=== PATIENT | female | born 1980 | race Caucasian/White ===

== ENCOUNTER 2023-04-08 14:30 | Emergency (ER) | payer MEDICARE, SELFPAY ==
[2023-04-08 14:49] VITALS: BP 124/55; PULSE 66; RESP 22; TEMP 36.4; O2SAT 99; BMI 23.3
--- NOTE | 2023-04-08 15:05 | ECG_ITS ---
[facility] Test Date: 2023-04-08 Pat Name: Blanka Limon Department: Room: Gender: Female [employer]: : 1980 Requested By: Alfonso Mora Order Number: [id number] Dmitri MD: Hong Delgado M.D. Measurements Intervals Clint Rate: 72 P: 268 ND: 124 QRS: 58 QRSD: 93 T: 48 QT: 403 QTc: 441 Interpretive Statements Baseline artifact Rhythm appears to be ectopic atrial rhythm. ABNORMAL RHYTHM ECG No previous ECG available for comparison Electronically Signed On 04-10-2023 16:49:26 HEEL TURNER by Hong Delgado M.D. [id number]
--- NOTE | 2023-04-08 15:05 | XRR_ITS ---
PROCEDURE INFORMATION: Exam: XR Chest Exam date and time: 04/08/2023 4:01 PM Age: 42 years old Clinical indication: Screening exam; Other screening; Additional info: Suicidal ideation TECHNIQUE: Imaging protocol: Radiologic exam of the chest. Views: 1 view. COMPARISON: No relevant prior studies available. FINDINGS: Lungs: Unremarkable. No consolidation. Pleural spaces: Unremarkable. No pleural effusion. No pneumothorax. Heart/Mediastinum: Unremarkable. No cardiomegaly. Bones/joints: Unremarkable. Soft tissues: Vagal nerve stimulator device noted. XR/XR chest 1V portable [id number] IMPRESSION: No acute findings.
--- NOTE | 2023-04-08 15:29 | PC.PHAR ---
PT WAS ABLE TO VERIFY ALL HER MEDS BUT UNABLE TO REMEMBER WHEN LAST TAKEN.
--- NOTE | 2023-04-08 15:43 | W.ED.PSYCHS ---
Documented by User: Alfonso Mora DO 04/08/23 21:13 HPI - Psych General: Chief Complaint: Psychiatric Symptoms Stated Complaint: 96 hr hold Time Seen by Provider: 04/08/23 15:03 History of Present Illness: patient was brought to the ER by her friendWith thoughts of harming herself. Patient states to the nursing staff no I am a pussy and she stated I should have done it a long time ago. Patient was tearful in triage not cooperative with staff upon further questioning she became elusive with answers. The friend who is a deputy wrote an affidavit and. Patient would not give up her 's phone number to corroborate the affidavit. Patient did admit to locking herself in the bathroom with all the guns in the house. Patient also stated that she has brain cancer and schizophrenia. Patient also stated her has PTSD from his time in the war. Patient has a service animal with her. Dr. Cortes was consulted who came down here to interview the patient. Patient was uncooperative and gave elusive answers and try to avoid direct questioning. Dr. Cortes did not feel comfortable in letting the patient go home to environment as she described. Dr. Cortes suggested placing the patient in a 96-hour hold taking her up to [facility] where she can be further evaluated and treated. Review of Systems General: Reports: Other (Uncooperative with questioning) Physical Exam Const: COMMON NORMALS: no acute distress, average body habitus, patient oriented x3, no limitations, healthy appearing, alert and well nourished EXAM LIMITATIONS: other limitations (Uncooperative) HENMT: COMMON NORMALS: hearing grossly normal bilaterally Eye: COMMON NORMALS: Equal, round and reactive pupils present, EOMs intact bilaterally, conjunctivae normal and no scleral icterus CONJUNCTIVA: Yes conjunctivae normal PUPIL: Yes Equal, round and reactive pupils present Neck/C-Spine: COMMON NORMALS: full ROM Chest: COMMONS NORMALS: normal inspection of the chest Resp: COMMON NORMALS: normal respiratory effort, No retractions and No use of accessory muscles Cardio: COMMON NORMALS: regular rate and regular rhythm RATE: regular rate RHYTHM: regular rhythm Extremity: COMMON NORMALS: normal to inspection Neuro: COMMON NORMALS: patient oriented x3 and moves all extremities SENSORIUM/ORIENTATION: Yes alert Course Vital Signs: Vital signs: Vital Signs Temperature 98.6 F 04/09/23 18:28 Pulse Rate 88 04/09/23 18:28 Respiratory Rate 16 04/09/23 18:28 Blood Pressure 116/77 04/09/23 18:28 Pulse Oximetry 100 04/09/23 18:28 Oxygen Delivery Me thod Room Air 04/09/23 14:15 MDM - Psych Medical Decision Making Patient is refusing all workup. Upon further questioning and consulting Dr. Cortes it is suggested we place the patient on a 96-hour hold admit her to [facility] for further evaluation and treatment by Dr. Cortes. Differential Diagnosis Likely chronic schizophrenia and suicidal ideation Medical Records I reviewed the patient's medical records. Lab Data I reviewed the patient's lab results. 04/08/23 21:20 04/08/23 21:20 Radiology Impressions Chest X-Ray 04/08/23 15:05 IMPRESSION: No acute findings. Laboratory Results WBC 8.01 10^3/uL (3.29-11.43) 04/08/23 21:20 RBC 4.46 10^6/uL (3.85-5.65) 04/08/23 21:20 Hgb 14.80 g/dL (11.27-16.99) 04/08/23 21:20 Hct 43.2 % (36-47) 04/08/23 21:20 MCV 96.9 fl (85-98) 04/08/23 21:20 MCH 33.2 pg (27-33) H 04/08/23 21:20 MCHC 34.3 g/dL (30-55) 04/08/23 21:20 RDW 11.6 % (12.1-15.1) L 04/08/23 21:20 Plt Count 337 10^3/cmm (157-399) 04/08/23 21:20 MPV 9.3 fL (7.4-10.4) 04/08/23 21:20 Neut % (Auto) 50.5 % 04/08/23 21:20 Lymph % (Auto) 33.2 % 04/08/23 21:20 [place] % (Auto) 8.2 % 04/08/23 21:20 Eos % (Auto) 7.0 % 04/08/23 21:20 Baso % (Auto) 0.9 % 04/08/23 21:20 Neut # (Auto) 4.04 10^3/uL (1.8-7.7) 04/08/23 21:20 Lymph # (Auto) 2.7 10^3/uL (0.8-4.8) 04/08/23 21:20 [place] # (Auto) 0.7 10^3/uL (0.2-0.9) 04/08/23 21:20 Eos # (Auto) 0.6 10^3/uL (0.0-0.8) 04/08/23 21:20 Baso # (Auto) 0.1 10^3/uL (0.0-0.1) 04/08/23 21:20 Nucleated RBC % (auto) 0 % 04/08/23 21:20 Nucleated RBCs # 0.0 /100WBC 04/08/23 21:20 Sodium 134 mmol/L (136-145) L 04/08/23 21:20 Potassium 4.1 mmol/L (3.5-5.1) 04/08/23 21:20 Chloride 99 mmol/L (98-107) 04/08/23 21:20 Carbon Dioxide 24 mmol/L (22-29) 04/08/23 21:20 Anion Gap 15.1 (5-19) 04/08/23 21:20 BUN 15 mg/dL (6-20) 04/08/23 21:20 Creatinine 0.8 mg/dL (0.5-0.9) 04/08/23 21:20 GFR Calculation 78.3 mL/min (90-130) L 04/08/23 21:20 Glucose 100 mg/dL (65-115) 04/08/23 21:20 Calculated Osmolality 279 mOsm/kg (285-295) L 04/08/23 21:20 Calcium 9.5 mg/dL (8.5-10.5) 04/08/23 21:20 Total Bilirubin 1.0 mg/dL (0.15-1.2) 04/08/23 21:20 AST 15 U/L (0-32) 04/08/23 21:20 ALT 12 U/L (0-33) 04/08/23 21:20 Alkaline Phosphatase 76 U/L (35-105) 04/08/23 21:20 Total Protein 7.6 g/dL (6.6-8.7) 04/08/23 21:20 Albumin 4.8 g/dL (3.5-5.2) 04/08/23 21:20 Globulin 2.8 g/dL (1.3-4.6) 04/08/23 21:20 TSH 2.41 uIU/mL (0.27-4.20) 04/08/23 21:20 HCG, Qual Negative (Negative) 04/08/23 21:42 Urine Color Yellow (Yellow) 04/08/23 21:40 Urine Appearance Hazy (CLEAR) A 04/08/23 21:40 Urine pH 5 (5-7) 04/08/23 21:40 Ur Specific [place] 1.025 (1.005-1.030) 04/08/23 21:40 Urine Protein Trace (Negative) 04/08/23 21:40 Urine Glucose (UA) Norm (Normal) 04/08/23 21:40 Urine Ketones 1+ (Negative) H 04/08/23 21:40 Urine Blood 2+ (Negative) H 04/08/23 21:40 Urine Nitrate Negative (Negative) 04/08/23 21:40 Urine Bilirubin Neg (Negative) 04/08/23 21:40 Urine Urobilinogen Neg mg/dL (Negative) 04/08/23 21:40 Ur Leukocyte Esterase Negative (Negative) 04/08/23 21:40 Urine RBC 5-10 /hpf (0-2) H 04/08/23 21:40 Urine WBC None /hpf (0-5) 04/08/23 21:40 Ur Squamous Epith Cells 15-25 /hpf (0-5) H 04/08/23 21:40 Amorphous Sediment Not Reportable 04/08/23 21:40 Urine Bacteria 1+ /hpf (NONE) H 04/08/23 21:40 Urine Mucus 2+ /hpf 04/08/23 21:40 Nasal Influ A H1 2008 PCR Not detected (NOT DETECT) 04/08/23 21:16 Salicylates < 0.3 mg/dL (3-10) L 04/08/23 21:20 Urine Opiates Screen Positive ng/mL (Negative) H 04/08/23 21:40 Acetaminophen < 5.0 ug/mL (10-30) L 04/08/23 21:20 Ur Barbiturates Screen Negative ng/mL (Negative) 04/08/23 21:40 Ur Phencyclidine Scrn Negative ng/mL (Negative) 04/08/23 21:40 Ur Amphetamines Screen Negative ng/mL (Negative) 04/08/23 21:40 U Benzodiazepines Scrn Positive ng/mL (Negative) H 04/08/23 21:40 Urine Cocaine Screen Negative ng/mL (Negative) 04/08/23 21:40 U Marijuana (THC) Screen Positive ng/mL (Negative) H 04/08/23 21:40 Ethyl Alcohol < 10 mg/dL (0-10) 04/08/23 21:20 Adenovirus (PCR) Not detected (NOT DETECT) 04/08/23 21:16 C. pneumoniae DNA (PCR) Not detected (NOT DETECT) 04/08/23 21:16 Coronavirus 229E (PCR) Not detected (NOT DETECT) 04/08/23 21:16 Human Metapneumovir PCR Not detected (NOT DETECT) 04/08/23 21:16 Influenza A (H1) PCR Not detected (NOT DETECT) 04/08/23 21:16 Influenza A (H3) PCR Not detected (NOT DETECT) 04/08/23 21:16 Influenza Type A (PCR) Not detected (NOT DETECT) 04/08/23 21:16 Influenza Type B (PCR) Not detected (NOT DETECT) 04/08/23 21:16 M. pneumoniae (PCR) Not detected (NOT DETECT) 04/08/23 21:16 Parainfluenza 1 (PCR) Not detected (NOT DETECT) 04/08/23 21:16 Parainfluenza 2 (PCR) Not detected (NOT DETECT) 04/08/23 21:16 Parainfluenza 3 (PCR) Not detected (NOT DETECT) 04/08/23 21:16 Parainfluenza 4 (PCR) Not detected (NOT DETECT) 04/08/23 21:16 RSV Type A (PCR) Not detected (NOT DETECT) 04/08/23 21:16 RSV Type B (PCR) Not detected (NOT DETECT) 04/08/23 21:16 Entero/Rhino (PCR) Not detected (NOT DETECT) 04/08/23 21:16 SARS-CoV-2 (PCR) Not detected (NOT DETECT) 04/08/23 21:16 All radiology interpretation(s) finalized by discharge Discharge Plan Discharge Patient Disposition: Admitted As Inpatient Clinical Impression: Chronic schizophrenia, Suicidal ideation Condition: Stable Coding Level of Care Code ED Stem Threshing Machine Operator for Arun Fwd Documented by User: Daniel Mann MD 04/08/23 23:10 HPI - Psych General: Chief Complaint: Psychiatric Symptoms Stated Complaint: 96 hr hold Time Seen by Provider: 04/08/23 15:03 Course Reevaluation(s): Reevaluation #1: Patient was turned over to me patient has been on a 96-hour hold I believe since 1699. As informed that she does have a personal belongings in her room. I went in her room she did have a full duffel bag of personal belongings had found a pill on her floor as well. I spoke to patient informed her of policy she is not allowed to have a bag full of her belongings in her room under 96-hour hold I did remove the bag Time: 22:30 Vital Signs: Vital signs: Vital Signs Temperature 98.6 F 04/09/23 18:28 Pulse Rate 88 04/09/23 18:28 Respiratory Rate 16 04/09/23 18:28 Blood Pressure 116/77 04/09/23 18:28 Pulse Oximetry 100 04/09/23 18:28 Oxygen Delivery Tn thod Room Air 04/09/23 14:15 MDM - Psych Lab Data 04/08/23 21:20 04/08/23 21:20 Radiology Impressions Chest X-Ray 04/08/23 15:05 IMPRESSION: No acute findings. Laboratory Results WBC 8.01 10^3/uL (3.29-11.43) 04/08/23 21:20 RBC 4.46 10^6/uL (3.85-5.65) 04/08/23 21:20 Hgb 14.80 g/dL (11.27-16.99) 04/08/23 21:20 Hct 43.2 % (36-47) 04/08/23 21:20 MCV 96.9 fl (85-98) 04/08/23 21:20 MCH 33.2 pg (27-33) H 04/08/23 21:20 MCHC 34.3 g/dL (30-55) 04/08/23 21:20 RDW 11.6 % (12.1-15.1) L 04/08/23 21:20 Plt Count 337 10^3/cmm (157-399) 04/08/23 21:20 MPV 9.3 fL (7.4-10.4) 04/08/23 21:20 Neut % (Auto) 50.5 % 04/08/23 21:20 Lymph % (Auto) 33.2 % 04/08/23 21:20 [place] % (Auto) 8.2 % 04/08/23 21:20 Eos % (Auto) 7.0 % 04/08/23 21:20 Baso % (Auto) 0.9 % 04/08/23 21:20 Neut # (Auto) 4.04 10^3/uL (1.8-7.7) 04/08/23 21:20 Lymph # (Auto) 2.7 10^3/uL (0.8-4.8) 04/08/23 21:20 [place] # (Auto) 0.7 10^3/uL (0.2-0.9) 04/08/23 21:20 Eos # (Auto) 0.6 10^3/uL (0.0-0.8) 04/08/23 21:20 Baso # (Auto) 0.1 10^3/uL (0.0-0.1) 04/08/23 21:20 Nucleated RBC % (auto) 0 % 04/08/23 21:20 Nucleated RBCs # 0.0 /100WBC 04/08/23 21:20 Sodium 134 mmol/L (136-145) L 04/08/23 21:20 Potassium 4.1 mmol/L (3.5-5.1) 04/08/23 21:20 Chloride 99 mmol/L (98-107) 04/08/23 21:20 Carbon Dioxide 24 mmol/L (22-29) 04/08/23 21:20 Anion Gap 15.1 (5-19) 04/08/23 21:20 BUN 15 mg/dL (6-20) 04/08/23 21:20 Creatinine 0.8 mg/dL (0.5-0.9) 04/08/23 21:20 GFR Calculation 78.3 mL/min (90-130) L 04/08/23 21:20 Glucose 100 mg/dL (65-115) 04/08/23 21:20 Calculated Osmolality 279 mOsm/kg (285-295) L 04/08/23 21:20 Calcium 9.5 mg/dL (8.5-10.5) 04/08/23 21:20 Total Bilirubin 1.0 mg/dL (0.15-1.2) 04/08/23 21:20 AST 15 U/L (0-32) 04/08/23 21:20 ALT 12 U/L (0-33) 04/08/23 21:20 Alkaline Phosphatase 76 U/L (35-105) 04/08/23 21:20 Total Protein 7.6 g/dL (6.6-8.7) 04/08/23 21:20 Albumin 4.8 g/dL (3.5-5.2) 04/08/23 21:20 Globulin 2.8 g/dL (1.3-4.6) 04/08/23 21:20 TSH 2.41 uIU/mL (0.27-4.20) 04/08/23 21:20 HCG, Qual Negative (Negative) 04/08/23 21:42 Urine Color Yellow (Yellow) 04/08/23 21:40 Urine Appearance Hazy (CLEAR) A 04/08/23 21:40 Urine pH 5 (5-7) 04/08/23 21:40 Ur Specific [place] 1.025 (1.005-1.030) 04/08/23 21:40 Urine Protein Trace (Negative) 04/08/23 21:40 Urine Glucose (UA) Norm (Normal) 04/08/23 21:40 Urine Ketones 1+ (Negative) H 04/08/23 21:40 Urine Blood 2+ (Negative) H 04/08/23 21:40 Urine Nitrate Negative (Negative) 04/08/23 21:40 Urine Bilirubin Neg (Negative) 04/08/23 21:40 Urine Urobilinogen Neg mg/dL (Negative) 04/08/23 21:40 Ur Leukocyte Esterase Negative (Negative) 04/08/23 21:40 Urine RBC 5-10 /hpf (0-2) H 04/08/23 21:40 Urine WBC None /hpf (0-5) 04/08/23 21:40 Ur Squamous Epith Cells 15-25 /hpf (0-5) H 04/08/23 21:40 Amorphous Sediment Not Reportable 04/08/23 21:40 Urine Bacteria 1+ /hpf (NONE) H 04/08/23 21:40 Urine Mucus 2+ /hpf 04/08/23 21:40 Nasal Influ A H1 2008 PCR Not detected (NOT DETECT) 04/08/23 21:16 Salicylates < 0.3 mg/dL (3-10) L 04/08/23 21:20 Urine Opiates Screen Positive ng/mL (Negative) H 04/08/23 21:40 Acetaminophen < 5.0 ug/mL (10-30) L 04/08/23 21:20 Ur Barbiturates Screen Negative ng/mL (Negative) 04/08/23 21:40 Ur Phencyclidine Scrn Negative ng/mL (Negative) 04/08/23 21:40 Ur Amphetamines Screen Negative ng/mL (Negative) 04/08/23 21:40 U Benzodiazepines Scrn Positive ng/mL (Negative) H 04/08/23 21:40 Urine Cocaine Screen Negative ng/mL (Negative) 04/08/23 21:40 U Marijuana (THC) Screen Positive ng/mL (Negative) H 04/08/23 21:40 Ethyl Alcohol < 10 mg/dL (0-10) 04/08/23 21:20 Adenovirus (PCR) Not detected (NOT DETECT) 04/08/23 21:16 C. pneumoniae DNA (PCR) Not detected (NOT DETECT) 04/08/23 21:16 Coronavirus 229E (PCR) Not detected (NOT DETECT) 04/08/23 21:16 Human Metapneumovir PCR Not detected (NOT DETECT) 04/08/23 21:16 Influenza A (H1) PCR Not detected (NOT DETECT) 04/08/23 21:16 Influenza A (H3) PCR Not detected (NOT DETECT) 04/08/23 21:16 Influenza Type A (PCR) Not detected (NOT DETECT) 04/08/23 21:16 Influenza Type B (PCR) Not detected (NOT DETECT) 04/08/23 21:16 M. pneumoniae (PCR) Not detected (NOT DETECT) 04/08/23 21:16 Parainfluenza 1 (PCR) Not detected (NOT DETECT) 04/08/23 21:16 Parainfluenza 2 (PCR) Not detected (NOT DETECT) 04/08/23 21:16 Parainfluenza 3 (PCR) Not detected (NOT DETECT) 04/08/23 21:16 Parainfluenza 4 (PCR) Not detected (NOT DETECT) 04/08/23 21:16 RSV Type A (PCR) Not detected (NOT DETECT) 04/08/23 21:16 RSV Type B (PCR) Not detected (NOT DETECT) 04/08/23 21:16 Entero/Rhino (PCR) Not detected (NOT DETECT) 04/08/23 21:16 SARS-CoV-2 (PCR) Not detected (NOT DETECT) 04/08/23 21:16 Discharge Plan Discharge Patient Disposition: Admitted As Inpatient Clinical Impression: Chronic schizophrenia, Suicidal ideation Condition: Stable Coding Level of Care Code ED Stem Threshing Machine Operator for g Fwd Documented by User: Mateusz Birmingham DO 04/20/23 07:45 HPI - Psych General: Chief Complaint: Psychiatric Symptoms Stated Complaint: 96 hr hold Time Seen by Provider: 04/08/23 15:03 Course Vital Signs: Vital signs: Vital Signs Temperature 98.6 F 04/09/23 18:28 Pulse Rate 88 04/09/23 18:28 Respiratory Rate 16 04/09/23 18:28 Blood Pressure 116/77 04/09/23 18:28 Pulse Oximetry 100 04/09/23 18:28 Oxygen Delivery Me thod Room Air 04/09/23 14:15 MDM - Psych Medical Decision Making Patient is refusing all workup. Upon further questioning and consulting Dr. Cortes it is suggested we place the patient on a 96-hour hold admit her to [facility] for further evaluation and treatment by Dr. Cortes. 04/09/2023 7:08 AM Assumed care at change of shift from Dr. Mann. Reviewed chart and discussed case with Dr. Mann. Service animal as shown aggression to staff. Is also been documented the patient has stated the dog likely to be be aggressive and potentially bite staff. Dr. Mann and I both agree the dog is an impediment to the care of this patient and is an immediate physical threat to the staff. Dr. Mann has had her changed into scrubs, and removed the personal belongings from the room as per hospital policy and standard of care. Last evening staff states that the had offered to take the dog home. We are making attempts to contact him to have him come and get the dog. We are unable to place the patient due to the dog being present. Patient's did arrive and remove the dog from the facility he took at home. Ultimately were able to get accepting facility and patient was transferred via ambulance to outside psychiatry facility. Lab Data 04/08/23 21:20 04/08/23 21:20 Radiology Impressions Chest X-Ray 04/08/23 15:05 IMPRESSION: No acute findings. Laboratory Results WBC 8.01 10^3/uL (3.29-11.43) 04/08/23 21:20 RBC 4.46 10^6/uL (3.85-5.65) 04/08/23 21:20 Hgb 14.80 g/dL (11.27-16.99) 04/08/23 21:20 Hct 43.2 % (36-47) 04/08/23 21:20 MCV 96.9 fl (85-98) 04/08/23 21:20 MCH 33.2 pg (27-33) H 04/08/23 21:20 MCHC 34.3 g/dL (30-55) 04/08/23 21:20 RDW 11.6 % (12.1-15.1) L 04/08/23 21:20 Plt Count 337 10^3/cmm (157-399) 04/08/23 21:20 MPV 9.3 fL (7.4-10.4) 04/08/23 21:20 Neut % (Auto) 50.5 % 04/08/23 21:20 Lymph % (Auto) 33.2 % 04/08/23 21:20 [place] % (Auto) 8.2 % 11/28/23 21:20 Eos % (Auto) 7.0 % 04/08/23 21:20 Baso % (Auto) 0.9 % 04/08/23 21:20 Neut # (Auto) 4.04 10^3/uL (1.8-7.7) 04/08/23 21:20 Lymph # (Auto) 2.7 10^3/uL (0.8-4.8) 04/08/23 21:20 [place] # (Auto) 0.7 10^3/uL (0.2-0.9) 04/08/23 21:20 Eos # (Auto) 0.6 10^3/uL (0.0-0.8) 04/08/23 21:20 Baso # (Auto) 0.1 10^3/uL (0.0-0.1) 04/08/23 21:20 Nucleated RBC % (auto) 0 % 04/08/23 21:20 Nucleated RBCs # 0.0 /100WBC 04/08/23 21:20 Sodium 134 mmol/L (136-145) L 04/08/23 21:20 Potassium 4.1 mmol/L (3.5-5.1) 04/08/23 21:20 Chloride 99 mmol/L (98-107) 04/08/23 21:20 Carbon Dioxide 24 mmol/L (22-29) 04/08/23 21:20 Anion Gap 15.1 (5-19) 04/08/23 21:20 BUN 15 mg/dL (6-20) 04/08/23 21:20 Creatinine 0.8 mg/dL (0.5-0.9) 04/08/23 21:20 GFR Calculation 78.3 mL/min (90-130) L 04/08/23 21:20 Glucose 100 mg/dL (65-115) 04/08/23 21:20 Calculated Osmolality 279 mOsm/kg (285-295) L 04/08/23 21:20 Calcium 9.5 mg/dL (8.5-10.5) 04/08/23 21:20 Total Bilirubin 1.0 mg/dL (0.15-1.2) 04/08/23 21:20 AST 15 U/L (0-32) 04/08/23 21:20 ALT 12 U/L (0-33) 04/08/23 21:20 Alkaline Phosphatase 76 U/L (35-105) 04/08/23 21:20 Total Protein 7.6 g/dL (6.6-8.7) 04/08/23 21:20 Albumin 4.8 g/dL (3.5-5.2) 04/08/23 21:20 Globulin 2.8 g/dL (1.3-4.6) 04/08/23 21:20 TSH 2.41 uIU/mL (0.27-4.20) 04/08/23 21:20 HCG, Qual Negative (Negative) 04/08/23 21:42 Urine Color Yellow (Yellow) 04/08/23 21:40 Urine Appearance Hazy (CLEAR) A 04/08/23 21:40 Urine pH 5 (5-7) 04/08/23 21:40 Ur Specific [place] 1.025 (1.005-1.030) 04/08/23 21:40 Urine Protein Trace (Negative) 04/08/23 21:40 Urine Glucose (UA) Norm (Normal) 04/08/23 21:40 Urine Ketones 1+ (Negative) H 04/08/23 21:40 Urine Blood 2+ (Negative) H 04/08/23 21:40 Urine Nitrate Negative (Negative) 04/08/23 21:40 Urine Bilirubin Neg (Negative) 04/08/23 21:40 Urine Urobilinogen Neg mg/dL (Negative) 04/08/23 21:40 Ur Leukocyte Esterase Negative (Negative) 04/08/23 21:40 Urine RBC 5-10 /hpf (0-2) H 04/08/23 21:40 Urine WBC None /hpf (0-5) 04/08/23 21:40 Ur Squamous Epith Cells 15-25 /hpf (0-5) H 04/08/23 21:40 Amorphous Sediment Not Reportable 04/08/23 21:40 Urine Bacteria 1+ /hpf (NONE) H 04/08/23 21:40 Urine Mucus 2+ /hpf 04/08/23 21:40 Nasal Influ A H1 2009 PCR Not detected (NOT DETECT) 04/08/23 21:16 Salicylates < 0.3 mg/dL (3-10) L 04/08/23 21:20 Urine Opiates Screen Positive ng/mL (Negative) H 04/08/23 21:40 Acetaminophen < 5.0 ug/mL (10-30) L 04/08/23 21:20 Ur Barbiturates Screen Negative ng/mL (Negative) 04/08/23 21:40 Ur Phencyclidine Scrn Negative ng/mL (Negative) 04/08/23 21:40 Ur Amphetamines Screen Negative ng/mL (Negative) 04/08/23 21:40 U Benzodiazepines Scrn Positive ng/mL (Negative) H 04/08/23 21:40 Urine Cocaine Screen Negative ng/mL (Negative) 04/08/23 21:40 U Marijuana (THC) Screen Positive ng/mL (Negative) H 04/08/23 21:40 Ethyl Alcohol < 10 mg/dL (0-10) 04/08/23 21:20 Adenovirus (PCR) Not detected (NOT DETECT) 04/08/23 21:16 C. pneumoniae DNA (PCR) Not detected (NOT DETECT) 04/08/23 21:16 Coronavirus 229E (PCR) Not detected (NOT DETECT) 04/08/23 21:16 Human Metapneumovir PCR Not detected (NOT DETECT) 04/08/23 21:16 Influenza A (H1) PCR Not detected (NOT DETECT) 04/08/23 21:16 Influenza A (H3) PCR Not detected (NOT DETECT) 04/08/23 21:16 Influenza Type A (PCR) Not detected (NOT DETECT) 04/08/23 21:16 Influenza Type B (PCR) Not detected (NOT DETECT) 04/08/23 21:16 M. pneumoniae (PCR) Not detected (NOT DETECT) 04/08/23 21:16 Parainfluenza 1 (PCR) Not detected (NOT DETECT) 04/08/23 21:16 Parainfluenza 2 (PCR) Not detected (NOT DETECT) 04/08/23 21:16 Parainfluenza 3 (PCR) Not detected (NOT DETECT) 04/08/23 21:16 Parainfluenza 4 (PCR) Not detected (NOT DETECT) 04/08/23 21:16 RSV Type A (PCR) Not detected (NOT DETECT) 04/08/23 21:16 RSV Type B (PCR) Not detected (NOT DETECT) 04/08/23 21:16 Entero/Rhino (PCR) Not detected (NOT DETECT) 04/08/23 21:16 SARS-CoV-2 (PCR) Not detected (NOT DETECT) 04/08/23 21:16 Discharge Plan Discharge Patient Disposition: Admitted As Inpatient Clinical Impression: Chronic schizophrenia, Suicidal ideation Condition: Stable Coding Level of Care Code ED Stem Threshing Machine Operator for Arun Mcdaniel
--- NOTE | 2023-04-08 17:50 | PC.NURSE ---
Patient 96 hr rights attempted to be reviewed with patient @1750. [facility] community service officer coordinator Arian, Evaluation Advisor JEFF Justice, Risk Management Giulia, Primary RN Adwoa and multiple other ED staff within close proximity during rights being reviewed. Patient was resistant to discussion of 96 hr hold, and processes that set by [facility] for patient and staff safety. She stated she wanted to be transferred to another facility, and was adamant about not wanting to change out into her scrubs or entering into a ED room with her service animal. Education given on why scrubs and placement into a room were necessary. Patient did state she understood the 96 hr hold process. Patient copy was then left at bedside with the patient.
--- NOTE | 2023-04-08 19:04 | PC.NURSE ---
I was called to the ED regarding dog concern in the Emergency Department. I assisted in investigating the service dog. The patient states the dog is trained to alert for her seizures, she has epilepsy. Staff made aware that the dog is a service animal. While I was in the unit there was concern for patient safety and staff safety as she states to the Yard Spotter the dog will bite if we force her to complete the ordered treatments (blood draw, EKG, urine). Discussion with the Security Staff, Housekeeping Cleaner and Director Statistical Programming to determine the best course of action for the patient and staff safety. She is stating that the dog needs to go use the restroom and initial refuses to let anyone assist in taking the dog out. [place] law enforcement and [facility] Security officers offer to take the dog to the restroom, she states she is not responsible if the dog bites them. In addition to the safety concern, affidavit was provided by [place] law enforcement that has a statement from her spouse. Law enforcement states that they did not witness the details in the affidavit. Confirmed with the ED Provider and Security that the patient is not currently court order 96 hour hold. The patient is pending a psychiatric evaluation. Law enforcement waited until the psychiatric evaluation occurred then departed from the organization. Psychiatrist, Dr. Zaldivar, evaluated the patient and reportedly placed the patient on a 96 hour hold and recommended admission. Due to the Neuropsychiatric unit and the medical units bed lack of availability the patient cannot be admitted. Spoke with the Yard Spotter and CNO when consensus to follow standard operating procedure of finding placement at a facility that has beds. Consensus to proceed with reading the patient her 96 hour rights and then explaining the policy regarding service dog animal requirements in the facility including that the animal may not be a threat to staff and must be kept under control. I witnessed the Assembler Chassis read the patient their rights as well as the Nurse Yard Spotter give the instruction of the dog must be controlled and patient must comply with hospital policy. Patient requests a minute to process. She mentions have a conservator but then declines to give a name to me when I ask or a phone number to the person so we may verify. She says she will just read her rights and let us know if she has any further questions. She then says she doesn't want to go into the room as it makes her anxious and it will trigger a grand mal seizure. She states she has a VNS and we probably don't know how to activate it. I then asked her which side her generator was on she states right but then show me left. I asked where her magnet is and it is located on her right wrist. I let her know my background was in Neurology and I was aware of how to utilize the device she has and offered to ensure all nursing staff taking care of her had understanding of the device before I departed. Patient then escorted by myself and Tree Trimming Supervisor, Arian Harp to the ED room she is assigned to where she sits on the bed. Nurse provided a blanket for the dog to lay on the floor. I asked the patient if she would like some food and she became tearful stating I haven't eaten since Friday, I don't cook, people feed me. I asked if there was something in particular she would like or if she would like a sandwich, she states she doesn't know . I replied I would give her time to think about it and come back to check on her. Patient left with Security and 1:1 sitter. Upon my return the dog is now in the bed with the patient. I returned to the room with a glass of water for the patient in which she replies water sucks I asked her if she liked soda she said soda is good . I asked her if she liked a particular kind of soda and then she became tearful and refused to answer me. She then states that she has a mentation of a 15 year old and asked for 5 more minutes until she had to change her scrubs. I came back with the paper scrubs in 5 minutes to begin to assist her in changing. The cyber security engineer stepped out of the room and the curtain was pulled for her privacy. She then refuses to change. She states that the scrubs will cut her brain . I took a moment to demonstrated that the scrubs did not have anything in them to harm her. She states you just don't understand, its the PTSD . She then proceeds to tell me that you don't understand anything and I probably don't have a license in this game . I attempted to redirect her to the current task at hand and explained that we needed to move forward with changing her out of her clothes. She becomes agitated and states that if the scrubs are such a big deal that if she was doing it she would choose someone else. I asked her to choose who she would like to assist her in getting changed and completing the standard skin assessment as part of the nursing assessment. She refuses to comply and states that changing her clothes would be traumatizing . I asked her why and she refuses to speak and just sits on the bed. I had conversations with the patient in attempt to get her to change her clothes for approximately 45 minutes. I notified the doctor that she stated she would not be changing her clothes. The ED provider is agreeable to let her remain in her personal clothes at this time to avoid a physical interaction with the patient as she has mentioned previously in her visit the dog would bite us. Notification of the decision to remain in personal clothing was given to the oncoming nurse and of the epilepsy/VNS device and the patients concern related to this. I departed the unit. I contacted the Manager Program Management to ensure that he was agreeable to this plan as well as the Housekeeping Cleaner. Notification made to the AOC that the patient was now stable and complying with ordered EKG and the decision to leave her in her personnel clothes and mitigate a Code 10 situation had been made to the nurse caring for the patient as well as the on duty cyber security engineer. Notification to CNO of the event.
--- NOTE | 2023-04-08 20:47 | PC.NURSE ---
this nurse spoke with patient about transfer. pt requested to take dog outside to go potty, this nurse and security walked with patient outside and allowed dog to go potty. when pt arrived back to room with dog this nurse provided x2 sandwiches, Dr. Rosa in styrofoam cup, x2 jello with spoon. PSA aware. dog was given water. pt calm and cooperative with EKG. no further needs verbalized by patient.
--- NOTE | 2023-04-08 21:34 | PC.NURSE ---
Addendum entered by Cece Haines RN 04/09/23 00:10: pt was informed of need to change into scrubs and belongings to be removed as part of protocol. PSA aware as well. Original Note: pt cooperative with blood draw and respiratory panel at this time. informed pt of need for urine and changing into scrubs.
[2023-04-08 21:41] LABS: Basophils # 0.1 10^3/uL (0.0-0.1); Basophils % 0.9 %; Eosinophils # 0.6 10^3/uL (0.0-0.8); Hematocrit 43.2 % (36-47); Lymphocytes # 2.7 10^3/uL (0.8-4.8); Lymphocytes % 33.2 %; Mean Corpuscular HGB Conc 34.3 g/dL (30-55); Mean Corpuscular Hemoglobin 33.2 pg (27-33); Mean Corpuscular Volume 96.9 fl (85-98); Mean Platelet Volume 9.3 fL (7.4-10.4); Monocytes # 0.7 10^3/uL (0.2-0.9); Monocytes % 8.2 %; Neutrophils # 4.04 10^3/uL (1.8-7.7); Neutrophils % 50.5 %; Nucleated Red Blood Cells % 0 %; Platelet Count 337 10^3/cmm (157-399); Red Blood Count 4.46 10^6/uL (3.85-5.65); Red Cell Distribution Width 11.6 % (12.1-15.1); White Blood Count 8.01 10^3/uL (3.29-11.43)
--- NOTE | 2023-04-08 21:44 | PC.NURSE ---
pt cooperative and has provided urine and changed into green paper scrubs at this time. pt currently calm and cooperative.
--- NOTE | 2023-04-08 21:45 | PC.NURSE ---
pt calm at first but refuses to give up personal belongings, but becomes anxious with tangential speech. states it is not time for that yet i just have a few questions, let me just explain to you what is in the bag. you cannot take the bag . this nurse notified Dr. Mora. no further orders at this time as instructed to take process slow by management.
[2023-04-08 21:49] LABS: HCG Qualitative Urine. Negative (Negative)
[2023-04-08 21:53] LABS: Add Urine Microscopic? YES; Bilirubin Urine Neg (Negative); Blood Urine 2+ (Negative); Glucose Urine UA Norm (Normal); Ketones Urine 1+ (Negative); Leukocyte Esterase Urine Negative (Negative); Nitrate Urine Negative (Negative); Protein Urine Trace (Negative); Specific Gravity, Urine 1.025 (1.005-1.030); Urine Appearance Hazy (CLEAR); Urine Color Yellow (Yellow); Urobilinogen Urine Neg (Negative); pH Urine 5 (5-7)
[2023-04-08 21:54] LABS: Add Urine Culture? No; Bacteria Urine 1+ /hpf; Mucus Urine 2+ /hpf; Squamous Epithelial Cell Urine 15-25 /hpf (0-5)
[2023-04-08 21:55] LABS: Alanine Aminotransferase 12 U/L (0-33); Albumin Level 4.8 g/dL (3.5-5.2); Alkaline Phosphatase 76 U/L (35-105); Anion Gap 15.1 (5-19); Aspartate Amino Transferase 15 U/L (0-32); Blood Urea Nitrogen 15 mg/dL (6-20); Calcium 9.5 mg/dL (8.5-10.5); Carbon Dioxide 24 mmol/L (22-29); Chloride 99 mmol/L (98-107); Globulin 2.8 g/dL (1.3-4.6); Glomerular Filtration Rate 78.3 mL/min (90-130); Glucose 100 mg/dL (65-115); Osmolality Calculated 279 mOsm/kg (285-295); Potassium 4.1 mmol/L (3.5-5.1); Sodium 134 mmol/L (136-145); Thyroid Stimulating Hormone 2.41 uIU/mL (0.27-4.20); Total Protein 7.6 g/dL (6.6-8.7)
[2023-04-08 21:58] LABS: Amphetamines Screen Urine Negative (Negative); Barbiturates Screen Urine Negative (Negative); Benzodiazepines Screen Urine Positive (Negative); Cocaine Screen Urine Negative (Negative); Opiate Screen Urine Positive (Negative); PCP Screen Urine Negative (Negative); THC Screen Urine Positive (Negative)
[2023-04-08 22:14] LABS: Acetaminophen < 5.0 ug/mL (10-30); Alcohol Level < 10 mg/dL (0-10); Salicylate < 0.3 mg/dL (3-10)
--- NOTE | 2023-04-08 23:02 | PC.NURSE ---
Addendum entered by Annamarie Harp RN 04/09/23 06:45: Correction risk management to quality management Original Note: After shift change risk management, Tosha Collins RN, told this nurse that we are not going to push the issue with the scrubs. Pt had bag with unidentified pills, personal clothes/jewelry/shoes on, phone, and dog with dog leash on. Pt was uncooperative with staff MD notified by RN and meds ordered. House sup and security notified. RD from security arrived to facility at approx 2200. Unable to obtain ketamine due to being out hospital wide. Pt then agreed to blood work and swabs at approx 2120. Nurse attempted to have pt change into scrubs, obtain urine, and lock up pt belongings. Pt told RN that she would give belongings once she went to the bathroom and changed. Pt came out of room 9 with dog to take the dog out to go to the bathroom, pt instructed to go back to room by Dr. Mann; security; and warehouse team leader and wait for personnel to take dog out to bathroom. PD called to facility to take out service dog, pt refused. Pt bag removed by Dr. Mann and locked in drawer 9 in NPU locker, at the time of removal a pill was noted to be on floor. Pt jewelry, jacket, and shoes removed and locked in NPU locker. Pt had global creative chairman on her person as belongings were being removed, it was locked in NPU locker with belongings. Prior PD departure of facility pt was offered to take service dog out to use bathroom again, pt refused. Pt was educated that she will not have a chance until hours later to take dog to use restroom, pt still refused.
[2023-04-08 23:22] LABS: Adenovirus Not Detected (NOT DETECT); Chlamydia Pneumoniae Not Detected (NOT DETECT); Coronavirus 229E,HKU1,NL63,OC4 Not Detected (NOT DETECT); Human Metapneumovirus Not Detected (NOT DETECT); Human Rhinovirus/Enterovirus Not Detected (NOT DETECT); Influenza A Not Detected (NOT DETECT); Influenza A H1 Not Detected (NOT DETECT); Influenza A H1-2009 Not Detected (NOT DETECT); Influenza A H3 Not Detected (NOT DETECT); Influenza B Not Detected (NOT DETECT); Mycoplasma Pneumoniae Not Detected (NOT DETECT); Parainfluenza Virus Type 1 Not Detected (NOT DETECT); Parainfluenza Virus Type 2 Not Detected (NOT DETECT); Parainfluenza Virus Type 3 Not Detected (NOT DETECT); Parainfluenza Virus Type 4 Not Detected (NOT DETECT); Respiratory Syncytial Virus A Not Detected (NOT DETECT); Respiratory Syncytial Virus B Not Detected (NOT DETECT); SARS-COV-2 Not Detected (NOT DETECT)
--- NOTE | 2023-04-09 01:00 | PC.NURSE ---
at approx 0100 PSA requested this nurse walk to hallway by 9, this nurse assessed concern of PSA. PSA asked if dog had been growling or barking because the dog was now growling and barking at him. PSA was sitting in hallway charting, dog was unprovoked at this time. this nurse went to assess pt and dog from outside room 9 and the dog started growling and then barking at this nurse. dog remained to be unprovoked. nurse assessed pts respirations at this time, 20 RR/min. door remained shut entire time and this nurse instructed PSA to keep door shut until further notice. PSA verbalized understanding.
--- NOTE | 2023-04-09 01:00 | PC.NURSE ---
Sitter alerted Nursing staff that he was documenting on sitter paper and dog came to door and began to growl and bark at sitter. Dog was unprovoked during this time. Door kept shut.
--- NOTE | 2023-04-09 01:04 | PC.NURSE ---
House sup notified of sitter-dog situation. foundry molder switched out with female sitter, dog resting in bed with pt at this time.
--- NOTE | 2023-04-09 02:52 | PC.NURSE ---
Addendum entered by Cece Haines RN 04/09/23 06:41: Correction: replace Distributor Cleaner RN to Athletic Trainer RN Original Note: This nurse assumed care of pt at approx 1845 on 04/08/2023, received report from off-going RN. Per off-going RN the patient was brought in and placed on 96 Hour hold and upper management was handling situation. This nurse spoke with Risk Management RN, ED Physician, and Security. Per Risk Management RN and ED Physician, this nurse was instructed to ?take process slow? and to ?give patient time? with psychiatric process of removing personal belongings, changing into scrubs, and collecting specimens for transfer. Risk Management RN informed this nurse that pt was insisting on going to [facility] for treatment due to prior treatment at [facility]. Risk Management RN also informed this nurse of patients dog at bedside, stated PD was at bedside earlier for assistance with dog. Risk Management RN stated pt was uncooperative with changing into scrubs and removing belongings, therefore resulting in order to ?go slow and give patient time?, which was approved by ED Physician, reinforced ironworker, and the CNO. This nurse spoke with patient in ER room 9 at approx 1850 on 04/09/2023 about this nurse assuming care of patient and the process with transfer. This nurse informed patient that we would need to change into green scrubs, remove all personal belongings (per policy), and receive certain specimens for transfer purposes. Patient became anxious and stated she was not ready and she was told she could ?take? her ?time?. Patient then stated her dog needed to go outside to [facility]. This nurse informed pt she would speak with Security regarding issue. This nurse spoke with Security about the dog going potty. Per Security it was cleared to take patient and dog outside, but asked for assistance from this nurse in doing so. This nurse and Security took patient and dog out to front of ER and allowed the dog to go potty. Security informed patient it was time to go back to room. Patient was compliant. This nurse and Security walked with patient and dog back to room 9 with no further complications. This nurse spoke with 1:1 PSA. PSA stated she had been sitting with patient 1:1 since approx 1500 04/08/2023. PSA stated she was also informed to ?take process slow? and to give ?patient time? with removing belongings and changing into scrubs. This nurse informed PSA of process for transfer and requirements. PSA verbalized understanding of plan of care with patient. Pt was cooperative with tech with EKG. This nurse and tech closed curtain to room 9 to receive EKG and give patient privacy. Pt was willing to allow EKG, but still refused to change out into green scrubs, give this nurse personal belongings, or give urine/blood specimens. This nurse spoke with ED physician regarding patient status and update on plan of care. Original ED physician gave no further instructions or orders at time of conversation. This nurse spoke with oncoming ED physician about process and consulted with patients current ED physician about needing to remove belongings and change into scrubs. Patients ED physician ordered Ketamine to have in case of patient refusal. Retail Greeter and Security was contacted to be safe. When Retail Greeter arrived to unit she informed this nurse that International Operations Manager was on way to ED and to wait on his arrival. Pharmacy informed this nurse that Ketamine was unavailable in vial hospital wide. This nurse spoke with ED Physician and ED Physician stated he would order B52 injection. At this time PSA informed nurse she was willing to give specimens needed and change into scrubs. Pt allowed this nurse to receive swab specimen and allowed lab to receive blood specimen. Pt stated she needed more time before changing into scrubs and giving urine specimen. This nurse informed patient of need to remove belongings as well. Pt became anxious and stated she ?needed more time?. PSA was able to assist pt changing into green scrubs, but pt still refused to remove personal belongings. This nurse informed ED physician of patients request. ED physician verbalized understanding of situation and gave this nurse no further orders. International Operations Manager arrived approx 2200. Shortly after International Operations Manager arrival pt walked out of ER room 9 with dog and informed staff that the dog needed to go outside to potty ?now?. Pt appeared anxious. International Operations Manager called [place] [employer] for assistance in taking patient and dog outside to go potty. Another ED physician, Retail Greeter, Security, this nurse, and ED charge nurse informed patient she needed to return to ED room 9 and wait for arrival of PD. Patient returned to ED room 9 and ED physician informed patient of need to remove personal bag. A pill was found on floor in ED room 9 and removed by ED Physician, along with patients bag. Pt was very anxious but eventually agreed to give bag to ED Physician. PD arrived at 2236. PD, this nurse, ED charge nurse, another ED physician, Retail Greeter, and Security were outside room 9. information systems supervisor informed patient of need to remove belongings, including jewelry, personal clothing, shoes, cellphone, and dogs rope leash. Pt denied allowing staff to remove belongings, stated ?I want to call someone to pick it up?. Pt was allowed to call to request him to fruit picker machine operator belongings. told patient to cooperate with staff and give up belongings. Pt eventually agreed and allowed staff to remove personal belongings. All personal belongings placed in labeled drawer outside ER room 9. PD attempted to give patient option to take dog out to go potty, informed pt that she would be allowed to stay with dog, but could not go out without PD present. Pt refused to take dog outside. PD and staff informed pt that dog would not be able to go out for awhile if dog did not go at this time. Pt still refused to take dog outside. PD left facility, pt remained in room 9 with dog.
[2023-04-09 03:00] VITALS: RESP 20
--- NOTE | 2023-04-09 03:55 | PC.NURSE ---
*this nurse, residential housekeeper, and ED charge logged all patient belongings starting at 0323 on 04/09/2023, listed as below:* Items found in duffel bag: cellphone with case (no cracks present) (placed in bag with pt label and tamper proof tape) green hypnotherapist (x1) reji dye hypnotherapist (x1) lip balm (x1) lotion (x1) container of misc. jewelry (sealed with tamper proof tape) berumen jacket (x1) shirt (x1) flannel (x1) pair of pink shoes (x1) duffel bag underwear (x5) 96 hour hold paperwork pants (x2) pair of socks (x1) pack of cigarettes (x6 cigarettes) pack of cigarettes (x13 cigarettes) pack of cigarettes (x9 cigarettes) hairspray (x2) audio/video technician block (x1) lotion (1/4 full) (x1) pink container with personal care utensils (x6 utensils) lip balm (x1) deodorant (x1) nail danish (x1) lotion (x2) cotton rounds (x1 package) bottle with green liquid (x1) white hypnotherapist (x1) empty berumen bag (small) (x1) single white pill labeled M-367 (x1) (placed with bottle of medications) 6.5 ft rope (x1) wallet (x1) (items in wallet listed below) assorted business cards (x6) social security cards (x2) single $2 bill (x1) assorted insurance cards (x6) service animal cards (x2) (service animal listed is Togolese Patel) High School diploma card (x1) cdl driver's license (x1) VNS card (x3) debit cards (x4) gift card (x1) [employer]'s member card (x1) mueller chains (x2) 0.25 cents (x3) *all above items placed in duffel bag, except single pill listed as placed in bottle of medications* *duffel bag returned to drawer located outside room 9* Boateng found in duffel bag: $100.00 bill (x1) $20.00 bill (x25) $10.00 bill (x2) $5.00 bill (x9) $1.00 bill (57) total: $722.00 Medication found in duffel bag: Fluvoxamine Maleate pill bottle (x1) (items included listed below) white pill with M-367 (x2) orange pill with 12-29 (x1) granados pill with F-50 APO (x18) dog kibble (x1 piece) Amitriptyline pill bottle (x1) (items included listed below) white pill with M-367 (x28 & 1/2 pill & 1/2 pill) orange pill with 12-29 (x3) Amitriptyline pill bottle (x1) (items included listed below) white pill with M-367 (x4.5) orange pill with 12-29 (x16) *boateng placed in envelope with amount listed, envelope sealed with tamper proof tape and signed by this nurse, ED charge, and residential housekeeper. boateng was sent with Security and Building Equipment Operator to be put in safe located in security office* *medications counted and logged by this nurse, ED charge, Building Equipment Operator. ED physician was notified and reviewed medications. medications were placed in ziplock bag sealed with tamper proof tape and patient labels*
[2023-04-09 04:00] VITALS: RESP 18
--- NOTE | 2023-04-09 04:27 | PC.NURSE ---
VNS stimulator magnet allowed to remain on pt wrist per physician.
[2023-04-09 04:45] VITALS: RESP 22
[2023-04-09 06:00] VITALS: RESP 18
--- NOTE | 2023-04-09 07:02 | PC.NURSE ---
report given to oncoming nurse by this nurse at 0702 on 04/09/2023
--- NOTE | 2023-04-09 07:26 | PC.NURSE ---
Spoke to pt to make arragements for him to come get the dog from patient.
[2023-04-09] MEDS: amitriptyline 25 mg Tablet 50 MG PO (10:13)
[2023-04-09] MEDS: CLONazepam 0.5 mg Tablet PO (10:13)
--- NOTE | 2023-04-09 10:27 | PC.NURSE ---
pt came and took dog home with him
--- NOTE | 2023-04-09 10:42 | PC.NURSE ---
Eduard (), arrived to the hospital to mushroom picker the patient's dog. While Eduard was here consent was obtained by Tosin witnessed by Zulema and this video game script writer from the patient to release her personal belongings to Eduard. The patients duffle bag with all contents, cell phone and money were given to Eduard witnessed by Security (Vlad and Tosin). The money was counted in front of Eduard witnessed by Security (Vlad and Tosin) a total of $722 was given to Eduard. The chain of custody form was signed and given to the Arch Support Technician to be placed with the patient record. The patient medications are stored in the Flocculator [facility] and were not sent with Eduard. They remain locked in the [facility].
[2023-04-09 14:15] VITALS: BP 127/84; PULSE 66; RESP 16; O2SAT 100
[2023-04-09 18:28] VITALS: BP 116/77; PULSE 88; RESP 16; TEMP 37; O2SAT 100
--- NOTE | 2023-04-09 19:37 | PC.NURSE ---
EMS arrived at 1920 [facility]. Pt cooperative at this time. [facility] at bedside to deliver listed medications that were locked in HS pyxis to EMS. Pt requested to take dog bowl with her. Dog bowl is plastic without dangerous items. EMS okayed pt to hold dog bowl as it calmed her down and one of the cigarette making examiner would be sitting in the back with her. Pt exited facility with EMS at 193. [facility] alerted of departure and anticipated ETA by . could not be alerted of departure as requested by pt as the pt did not know his phone number nor did she have her phone due to picking up all of her belongings from security this morning. There is no phone number in the pt's chart either.
== END 2023-04-09 19:44 | disposition admitted as inpatient to this hospital (09) ==
PROVIDERS: Emergency Medicine; Emergency Provider Family Medicine
DX: R45.851 Suicidal ideations (principal); F20.9 Schizophrenia, unspecified; Z11.52 Encounter for screening for COVID-19
CPT/HCPCS: 36415; 71045; 80053; 80306; 80307; 81001; 81025; 84443; 85025; 87486; 87581; 87633; 93005; 99285